=== PATIENT | female | born 1945 | race Hispanic/Latino ===

== ENCOUNTER 2024-06-18 09:39 | Emergency (ER) | payer MEDICARE, SELFPAY ==
--- NOTE | ~2024-06-18 | XR_ITS ---
XR chest 2V Ordering provider: Poppy Fried APRN History: 78 years Female with . cough fever x 2 days . Comparison: None. FINDINGS: MEDIASTINUM: The cardiac silhouette is not enlarged. LUNGS: No infiltrates, effusions or pneumothorax. OTHER: No free air under the diaphragm. Degenerative changes of the spine. Mild S-shaped scoliosis. IMPRESSION: No acute cardiopulmonary pathology. Reviewed, dictated and finalized at location A. HABILITATION SPECIALIST
[2024-06-18 09:53] VITALS: BP 127/61; PULSE 77; RESP 16; TEMP 36.9; O2SAT 99
--- NOTE | 2024-06-18 09:57 | ED.URI ---
HPI - URI/Sore Throat General Chief Complaint: Upper Respiratory Infection Stated Complaint: sore throat,chest issue Source: patient Mode of arrival: ambulatory Limitations: no limitations History of Present Illness HPI Narrative: 78 y/o female presented for c/o cough and chest congestion, body aches x3 days, and fever 100.4 yesterday.Endorses painful cough. Denies chest pain, sob, wheezing n/v/d. with similar symptoms. Related Data Allergies Allergy/AdvReac Type Severity Reaction Status Date / Time No Known Allergies Allergy Verified 06/18/24 09:57 Review of Systems Review of Systems: CONSTITUTIONAL: Reports body aches, fever EYES: Denies visual changes, redness, or discharge. ENT: Denies rhinorrhea, congestion, sore throat, or otalgia. CARDIOVASCULAR: Denies chest pain, palpitations, or edema. RESPIRATORY: Reports cough, denies sob, wheezing. GASTROINTESTINAL: Denies abdominal pain, nausea, vomiting, or diarrhea. SKIN: Denies rash NEUROLOGIC: Denies headache, numbness, tingling, or weakness. All systems reviewed & are unremarkable except as noted in HPI and below PMFSH Past Medical History Medical History (Updated 06/18/24 @ 10:29 by Poppy Fried, ELDA) Diabetes Glaucoma Comments At time of signature, I have reviewed and agree with nursing past medical, surgical, social and family history unless otherwise noted. Please see nursing chart for further information. There is no relevant family history pertinent to the presenting complaint Exam Narrative: GENERAL: Well-appearing, in no acute distress. EYES: EOMI. No redness or drainage. Conjunctivae normal. ENT: Mucous membranes pink and moist. No rhinorrhea. TMs normal bilaterally. Throat normal. Uvula midline. CHEST: No respiratory distress. Lungs clear to all osuna. HEART: Regular rate and rhythm. No murmur appreciated. ABDOMEN: Soft, nontender, nondistended SKIN: Warm, dry, no rash. Capillary refill normal. Normal skin turgor. NEURO: Alert and oriented x3. Gait steady. Course Course Emergency Course: Patient is aware of diagnosis, understands and agrees to treatment plan. Anticipatory guidance given. Patient agrees to follow-up as directed and is aware of reasons to seek care at the emergency department. Portions of this record may have been created with voice recognition software Level of Care: Express Care Visit Vital Signs Vital signs: Vital Signs Temperature 98.5 F 06/18/24 09:53 Pulse Rate 77 06/18/24 09:53 Respiratory Rate 16 06/18/24 09:53 Blood Pressure 127/61 06/18/24 09:53 Pulse Oximetry 99 06/18/24 09:53 Oxygen Delivery Room Air 06/18/24 09:53 Temperature 98.5 F 06/18/24 09:53 Pulse Rate 77 06/18/24 09:53 Respiratory Rate 16 06/18/24 09:53 Blood Pressure 127/61 06/18/24 09:53 Pulse Oximetry 99 06/18/24 09:53 Oxygen Delivery Room Air 06/18/24 09:53 MDM - URI/Sore Throat MDM Narrative Medical decision making narrative: Discussed physical exam findings, test results and CXR. Low dose short course prednisone, hx glaucoma. Advised supportive measures and signs/symptoms to go to the ER. Pt is appropriate for outpt treatment and f/u. Differential Diagnosis Differential diagnosis: Likely upper respiratory infection, sinusitis, viral infection, bronchitis, influenza and pharyngitis Imaging Data Radiologist's impression: Patient: Fara Knight : 1945 MR#: [id number] Age: 78 Acct:[id number] Loc: [facility] ADM Date: 06/18/24Attending Dr: Ordering Physician: Poppy Fried APRN Date of Service: 06/18/24 Procedure(s): XR chest 2V Accession Number(s): [id number] cc: Nate, Glenda Mendoza MD; Poppy Fried APRN~ XR chest 2V Ordering provider: Poppy Fried APRN History: 78 years Female with . cough fever x 2 days . Comparison: None. FINDINGS: MEDIASTINUM: The cardiac silhouette is not enlarged. LUNGS: No infiltrates, effusions or pneumothorax. OTHER: No free air under the diaphragm. Degenerative changes of the spine. Mild S-shaped scoliosis. IMPRESSION: No acute cardiopulmonary pathology Discharge Plan Discharge Clinical Impression: Bronchitis Patient Disposition: Home, Self-Care Condition: Stable Instructions: Antibiotic Form, Acute Bronchitis (ED) Additional Instructions: Acute bronchitis can be contagious because it is usually caused by infection with a virus or bacteria. It is usually for a few days but you can be contagious for up to one week. Avoid crowds until you do not have a fever and symptoms are improved Take medication as directed Recommend Flonase spray and Zyrtec (or Claritin/Arabella) over the counter Cough syrup may cause drowsiness; avoid driving or take it at night time. Tylenol 1000mg every 8 hours as needed for pain Symptomatic treatment includes: rest, fluids, and increase humidity of the air at home. Follow up with your primary care provider as needed in 1 week Go to the ER for worsening symptoms or concerns Prescriptions: New prednisone 20 mg tablet 40 mg PO DAILY 4 Days Qty: 8 0RF Follow-up/Referrals: Nate,Glenda Mendoza MD [Primary Care Provider] -
[2024-06-18 10:50] LABS: EDCOVIDSCREEN Negative (Negative); EDINFLUASCREEN Negative (Negative); EDINFLUBSCREEN Negative (Negative)
== END 2024-06-18 10:30 | disposition home or self-care (01) ==
PROVIDERS: Emergency Provider Nurse Practitioner Family; PCP Family Medicine
DX: J40 Bronchitis, not specified as acute or chronic (principal); Z20.822 Contact with and (suspected) exposure to COVID-19; E11.39 Type 2 diabetes mellitus with other diabetic ophthalmic complication; H42 Glaucoma in diseases classified elsewhere
CPT/HCPCS: 71046; 87426; 87804; 99213; G0463

== ENCOUNTER 2025-05-09 13:41 | Emergency (ER) | payer MEDICARE, MEDICAID, SELFPAY ==
--- NOTE | ~2025-05-09 | CT_ITS ---
EXAMINATION: CT brain wo belkis, 05/09/2025 14:30 CDT HISTORY: headache, hypertension COMPARISON: No comparisons available. Technique: Axial images obtained of the brain without contrast. One or more of the following dose reduction techniques were used: automated exposure control, adjustment of the mA and/or kV according to patient size, use of iterative reconstruction technique. Findings: No acute infarct or parenchymal hemorrhage. No abnormal mass or mass effect. No midline shift. No extra-axial fluid collections. No hydrocephalus. Mastoid air cells unremarkable. Sinuses and orbits unremarkable. No acute fracture. No significant facial or scalp soft tissue swelling evident. No radiopaque foreign body is seen. Impression: 1.No acute intracranial abnormality. Reviewed, dictated and finalized at location P. Impression: 1.No acute intracranial abnormality.
--- OUTSIDE RECORDS SUMMARY | 2025-05-09 13:44 | XMS_ITS | Clinical Summary ---
Author Organization [facility] Address [facility] [place] [address] Care Team Providers Care Dining Room Tables Set Up Attendant Name Role Phone Tuan Greene Primary Care Provider + Social History Tobacco Use Types Packs/Day Years Used Date Smoking Tobacco: Never Assessed Comments Unknown Sex and Gender Information Value Date Recorded Sex Assigned at Female 10/31/2024 1:00 PM CDT Legal Sex Female 1:05 PM CDT Gender Identity Not on file Sexual Orientation Not on file Plan of Treatment Health Maintenance Due Date Last Done Comments Hepatitis C 1965 DTaP, Tdap and Td Vaccines ( 1 - Tdap) 1966 Pneumococcal Vaccine: 50+ Years (1 of 1 - PCV) 1997 Zoster Vaccines (1 of 2) 1997 Annual Medicare Wellness Visit 2012 Dexa Scan (General) 2012 RSV Immunization or 60+ Years (1 - 1-dose 75+ series) 2022 COVID-19 Vaccine ( - 2023-2 5 season) 2025 Influenza Adult (#1) 2025 06/03/2024, 08/15/2022 Hepatitis A Vaccines Aged Out No long er eligible based on patient's age to complete this topic Meningococcal B Vaccine Aged Out No l onger eligible based on patient's age to complete this topic Meningococcal Vaccine Aged Out No chuckie antonio eligible based on patient's age to complete this topic RSV Immunizations Under 20 Months Aged Out No longer eligible b ased on patient's age to complete this topic Insurance [facility] MEDICARE MEDICAID Care Teams Dining Room Tables Set Up Attendant Relationship Specialty Start Date End Date Tuan Greene PA [facility] [place] [id number] PCP - General PHYSICIAN APPRENTICE EMBALMER 11/20/24
[2025-05-09 13:58] VITALS: BP 156/82; PULSE 67; RESP 20; TEMP 36.7; O2SAT 100
--- NOTE | 2025-05-09 14:38 | ED_ITS ---
HPI - Recheck/Abnormal Lab/Rx General Chief Complaint: Recheck/Abnormal Lab/Rx Stated Complaint: high BP Time Seen by Provider: 05/09/25 14:24 Source: patient Mode of arrival: ambulatory Limitations: no limitations History of Present Illness HPI narrative: This is a 79 year old female that presents to the ER for elevated blood pressure readings. Reports her provider recently increased her Vraylar and added on Quetiapine. Since then she has had elevated blood pressure. Reports some associated headaches. Denies vision changes, vomiting, numbness, weakness Related Data Allergies Allergy/AdvReac Type Severity Reaction Status Date / Time No Known Allergies Allergy Verified 06/18/24 09:57 Review of Systems 2 Review of Systems: All systems reviewed & are unremarkable except as noted in HPI and below PMFSH Past Medical History Medical History (Updated 05/09/25 @ 15:34 by Carol Park PA-C) Bipolar depression Glaucoma Diabetes Exam 2 Narrative: GENERAL: Well-appearing, well-nourished, and in no acute distress. HEAD: Normocephalic, atraumatic. EYES: PERRLA and EOMI. ENT: Nares clear, no rhinorrhea or epistaxis. Mucous membranes moist. Oropharynx without tonsillar hypertrophy exudate or other lesions. Bilateral TMs pearly hu non-bulging NECK: Supple. No adenopathy or masses. CHEST: Clear to auscultation. No respiratory distress. No wheezes rales or rhonchi HEART: Regular rate and rhythm. No murmur heard. Normal peripheral pulses. EXTREMITIES: Normal range of motion. No edema. SKIN: Warm, dry, no rash. NEURO: No focal deficits. Alert and oriented x3. Cranial nerves 2-12 grossly intact PSYCH: Normal mood and affect Course Course Emergency Course: patient and family updated on workup and agree with plan of care Vital Signs Vital signs: Vital Signs Temperature 98.0 F 05/09/25 13:58 Pulse Rate 67 05/09/25 13:58 Respiratory Rate 20 05/09/25 13:58 Blood Pressure 156/82 H 05/09/25 13:58 Pulse Oximetry 100 05/09/25 13:58 Oxygen Delivery Room Air 05/09/25 13:58 Temperature 98.0 F 05/09/25 13:58 Pulse Rate 67 05/09/25 13:58 Respiratory Rate 20 05/09/25 13:58 Blood Pressure 156/82 H 05/09/25 13:58 Pulse Oximetry 100 05/09/25 13:58 Oxygen Delivery Room Air 05/09/25 13:58 MDM - Recheck/Abnormal Lab/Rx MDM Narrative Medical decision making narrative: Patient presents the emergency department for elevated blood pressure readings, correlating this with recent increase in her Vraylar. Reporting headache. Blood pressure in the 150s to 180s in the ER. Laboratory studies without concerning findings. CT brain is without acute findings. Patient family updated on workup. Will trial decreasing her Vraylar back down to previous dose. She reports she has follow-up on Sunday Differential Diagnosis Differential diagnosis: Likely other (Hypertension, medication side effect) Lab Data Attestation: I reviewed the patient's lab results. 05/09/25 14:52 05/09/25 14:52 Labs: Lab Results 05/09/25 Range/Units 14:52 WBC 4.4 L (4.5-10.0) K/mm3 RBC 3.78 L (4.2-5.4) M/mm3 Hgb 12.3 (12.0-15.0) g/dL Hct 37.6 (37.0-47.0) % MCV 99.5 (80-100) fl MCH 32.5 (26-34) pg MCHC 32.7 (32-36) g/dl RDW 13.3 (11.5-14.5) % Plt Count 218 (150-375) k/mm3 MPV 9.2 (7.4-10.4) fl Immature Gran % (Auto) 0.2 (0-0.5) % Neut % (Auto) 58.3 (45.5-73.1) % Lymph % (Auto) 29.3 (18.3-44.2) % Wright % (Auto) 9.9 H (2.6-8.5) % Eos % (Auto) 1.8 (0-4.4) % Baso % (Auto) 0.5 (0.2-1.2) % Lymph # (Auto) 1.30 (0.9-3.2) K/mm3 Wright # (Auto) 0.4 (0.1-0.6) K/mm3 Eos # (Auto) 0.1 (0-0.3) K/mm3 Baso # (Auto) 0.0 (0.0-0.1) K/mm3 Abs Immat Gran (auto) 0.01 (0.00-0.031) K/mm3 Absolute Neuts (auto) 2.6 (1.3-6.7) K/mm3 Absolute Nucleated RBC 0.000 (0.0-0.012) K/mm3 Nucleated RBC % 0.0 (0.0-0.2) % Sodium 140 (137-145) mmol/L Potassium 4.0 (3.4-5.0) mmol/L Chloride 105 (98-107) mmol/L Carbon Dioxide 30 (22-30) mmol/L Anion Gap 5 (4-12) mmol/L BUN 16 (7-17) mg/dL Creatinine 0.55 L (0.7-1.0) mg/dL Estim Creat Clear Calc Not Reportable Estimated GFR > 60 (59 - ) Glucose 97 (65-110) mg/dL Calcium 9.1 (8.4-10.2) mg/dL Total Bilirubin 0.2 (0.2-1.3) mg/dL AST 34 (14-36) U/L ALT 24 (6-35) U/L Alkaline Phosphatase 107 (38-126) U/L Total Protein 7.1 (6.3-8.2) g/dL Albumin 4.2 (3.5-5.1) g/dL Imaging Data Radiologist's impression: ITS Impressions Head CT 05/09/25 14:52 Impression: 1.No acute intracranial abnormality. Critical Care Time Critical Care Time Critical Care Time: No Discharge Plan Discharge Clinical Impression: Elevated blood pressure reading Patient Disposition: Home Condition: Stable Instructions: Hypertension (ED) Additional Instructions: Return to the emergency department if you experience fever, chest pain, shortness of breath, weakness, numbness, or any other symptoms that are concerning to you. Let's see if decreasing your Vraylar back down (to 3mg) fixes your blood pressure issues Monitor your blood pressure at home daily. Record these readings to take to your PCP Follow up with your primary care doctor Patient Language: Mongolian Prescriptions: New Vraylar 3 mg capsule 3 mg PO DAILY Qty: 7 0RF No Action prednisone 20 mg tablet 40 mg PO DAILY 4 Days Qty: 8 0RF Follow-up/Referrals: El-Wilfred,Glenda Mendoza MD [Non-Staff]
--- OUTSIDE RECORDS SUMMARY | 2025-05-09 14:52 | XMS_ITS | Clinical Summary ---
Author Organization [facility] Address [facility] [place] [address] Care Team Providers Care Automobile Assembly Supervisor Name Role Phone Tuan Greene Primary Care [...] patient's age to complete this topic Insurance [facility] MEDICARE MEDICAID Care Teams Automobile Assembly Supervisor Relationship Specialty Start Date End Date Tuan Greene PA [facility] [place] [id number] PCP - General PHYSICIAN JAVA ENGINEER 11/20/24
--- OUTSIDE RECORDS SUMMARY | 2025-05-09 14:52 | XMS_ITS | Data Portability ---
Author Organization [place] [facility], Main Office Address [address] [place] [address] Care Team Providers Care Nuts And Bolts Assembler Name Role Phone SPENCER GREENE Primary Care Provider SPENCER GREENE Referring Provider [phone] Assessment No assessment recorded. Plan of Treatment Reminders Order Date Submit Date Provider Last Modified By Organization Details Last Modified Time Details Appointments Medicare Wellness 30 2024 09:00A ALEJANDRINA Max Not available Not available Not available Lab HbA1c (hemoglob in A1c), blood 2024 025 [facility], [address], [place], [address], 03/03/2025 09:29:53 CBC w/ auto diff 2024 025 [facility], [address], [place], [address], 03/03/2025 09:29:54 urinalysi s, complete 2024 025 GILDA [facility], [address], [place], [address], 02/25/2025 14:05:22 TSH + free T4, serum 2024 025 [facility], [address], [place], [address], 03/03/2025 09:29:53 lipid panel, serum 2024 025 [facility], [address], [place], [address], 03/03/2025 09:29:53 CMP, serum or plasma 2024 025 [facility], [address], [place], [address], 03/03/2025 09:29:53 hemoglobi n A1C, fingersti ck 2024 025 [facility], [address] [facility], [place], [address], 10/20/2024 11:04:20 colorecta l cancer gene mutations , blood/tis stephanie (OBS) [address] [facility], [address], [place], [address], 07/02/2024 11:04:46 glycohemo globin, total, blood 2023 024 [facility] [address] [place], [address], 06/03/2024 19:02:05 Referral physical therapist referral - Please call patient to schedule. 2024 025 [email or web address] [facility], [address] [place] [address], [place], [address], 03/30/2025 17:40:49 Procedures None recorded. Surgeries None recorded. Imaging MRI, brain, w/o contrast - Please call patient to schedule. Note from provider: poor short term memory , worried about dementia 2024 025 [email or web address] [facility] (Central Scheduling), [address] [place], [address], 11/18/2024 16:55:29 MAMMO, screening , digital, bilateral - Please call pt to schedule 2023 024 [email or web address] [id number] [facility], [address], [place], [address], 08/01/2024 08:58:26 DEXA, axial skeleton - Please call pt to schedule 2023 024 [email or web address] 56 [facility], [address], [place], [address], 08/01/2024 08:58:06 Medication Orders Vraylar 1.5 mg capsule 2024 025 [facility] #17579, [address], [place], [id number], 02/24/2025 10:33:27 trazodone 50 mg tablet 2024 025 [facility], [address], [place], [id number], 02/24/2025 11:28:45 meloxicam 15 mg tablet 2024 025 [facility], [address], [place], [id number], 02/24/2025 10:33:26 trazodone 100 mg tablet 2024 025 [facility], [address], [place], [id number], 11/24/2024 09:57:20 hydroxyzi ne HCl 25 mg tablet 2024 025 [facility] #12694, [address], [place], [id number], 02/24/2025 11:27:59 OneTouch Ultra Test strips 2024 025 [facility] #93673, [address] [place], [place], [id number], 11/24/2024 10:09:19 azithromy jesenia 250 mg tablet [address] [facility] #96060, [address] [place], [place], [id number], 02/24/2025 10:08:00 promethaz ine-DM 6.25 mg-15 mg/5 mL oral syrup 2024 025 [facility] #36076, [address], [place], [id number], 02/24/2025 10:32:14 prednison e 20 mg tablet [address] [facility] #58948, [address] [place], [place], [id number], 02/24/2025 10:09:14 Linzess 145 mcg capsule [address] [facility] #20416, [address] [place] [address], [id number], 02/24/2025 10:09:02 atorvasta tin 40 mg tablet 2023 024 [facility] #48610, [address] [place], [place], [id number], 06/03/2024 12:22:56 meloxicam 15 mg tablet 2023 024 [facility] #62697, [address], [place], [id number], 06/03/2024 12:22:13 OneTouch Ultra Test strips 2023 024 [facility], [address] [place], [place], [id number], 06/03/2024 12:22:12 Patient TargetsNo targets recorded. Patient Instructions Encounter Date Encounter Id Patient Instructions Last Modified By Organization Details Last Modified Time 06/03/2024 [id number] dementia rating scale-2* [email or web address] Not available 06/03/2024 13:49:00 alcohol misuse* [email or web address] Not availab le 06/24/2024 14:57:21 depression screening* [email or web address] Not available 06/24/2024 14:57:21 multi-dimensiona l health assessment questionnaire* [email or web address] Not available 06/03/2024 13:48:55 Personalized Hea lth Plan and Screening Recommendations Advance Directives - Do you have one? No I have no recommendations Advance Directives - Do we have your advance directive on file in your health record? No, please bring in a copy at your earliest convenience Primary Prevention/Interven tion (prevents or decreases the chance of common diseases from occurring) Smoking Risk: Non Smoker I have no recommendations Alcohol Misuse Screening: Positive Decrease alcohol intake to 1 or less servings per day Weight: Appropriate continue your current weight loss efforts Physical activity: Need more exercise/physical activity minimum of 20-30 minutes activity that causes mild breathlessness/day Nutrition: Average EAt Heart Healthy Diet Fall Risk (screened today): Intermediate Refer to attached handout Preventing Falls: After your Visit Vaccines Pneumococcal: No further needed Influenza: Recommended today Chronic Disease Risks Stroke: Intermediate Risk Active diagnosis, Continue current treatment plan Heart Attack: Intermediate Risk Active diagnosis, Continue current treatment plan Clogging of the Arteries: Intermediate Risk Active diagnosis, Continue current treatment plan Diabetes: High Risk Active diagnosis, Continue current treatment plan Secondary Prevention/Interven tion (detects treatable diseases before they may cause symptoms, disability, or ) Breast Cancer Screening with mammogram: Recommended today Cervical/Uterine/Ov zoe Cancer Screening: No screening necessary Osteoporosis Screening: Recommended today Colon Cancer Screening: Linder Test Recommended Eye Disease Screening: No Eye exam necessary Dementia Risk: Low I have no recommendations Depression Screening: Positive Active diagnosis, Continue current treatment plan [email or web address] Not available 06/02/2024 15:07:53 09/23/2024 [id number] samples of Linze ss 145 mcg # 20. she refused donepezil today. ordered a venous doppler [email or web address] Not available 09/23/2024 10:37:55 11/24/2024 [id number] just test daily fasting , check once weekly 2 hours after a meal . try you tube Deena's Roy Not available 11/26/2024 11:02:20 Reason for Referral Physical Therapist Referral for Pain of right knee joint Please call patient to schedule. Referring Physician: Ashlie Minor, Family Medicine, Encounter Date: 02/24/2025 Results Created Date Observation Date Name Description Value Unit Range Abnormal Flag Note LastModifiedBy Organization Detail LastModifiedTime 10/21/19 25 10/20/2024 hemog lobin A1C, finge rstic k HgbA1C 5.1 Not Available [facility] [address] [place], [address], 10/20/2024 10:34:35 06/18/20 24 06/18/2024 XR, chest , 2 view No observ ation record ed. [email or web address], [place], [address], 06/18/2024 14:13:08 12/05/19 25 12/04/2024 US, doppl er, venou s No observ ation record ed. [facility] [address] [place], [address], 03/05/2025 17:10:44 12/10/19 25 12/04/2024 MRI, brain , w/o contr ast No observ ation record ed. [address] [address] [place], [address], 03/05/2025 17:10:45 Result Notes None recorded. Problems Name Problem SNOMED Code Status Onset Date Resolution Date Notes Provider Name and Address Organization Details Recorded Time Hallux valgus AND bunion 640437481 Active Not Available [facility] 3 06:27:47 Insomnia 535546537 Active Not Available [facility] 3 06:27:47 Costal chondritis 71522102 Active Not Available [facility] 3 06:27:48 Fatigue 30634215 Active Not Available [facility] 3 06:27:48 Type 2 diabetes mellitus without complicati on 166256629 Active 2022 Not Available [facility] 3 06:27:47 Hypothyroi dism 53376281 Active 2022 Not Available [facility] 3 06:27:48 Hyperlipid emia 22619561 Active 2022 Not Available [facility] 3 06:27:48 Acute bronchitis with bronchospa sm 46781317 Active 2022 Not Available [facility] 3 06:27:48 Pain of toe of right foot 7116202437004 01 Active 2022 Not Available [facility] 3 06:27:48 Acute laryngitis 7621739 Active 2022 Not Available [facility] 3 06:27:48 Low back pain 165608116 Active 2022 Not Available [facility] 3 06:27:47 Osteopenia 914073836 Active 2022 Not Available [facility] 3 06:27:47 Mammograph y abnormal 228574485 Active 2022 Not Available [facility] 3 06:27:47 Mammograph ic mass of right breast 6031274711247 9103 Active 2022 Not Available [facility] 3 06:27:47 Pain of knee region 7329779248 Active 2023 DANIEL Dent [address] [address], [place], [address] , [facility] [employer] [facility] 4 09:39:19 Bipolar disorder 38654464 Active 2023 DANIEL Dent [address], [place], [address] , [place] [facility] 4 09:48:03 Tear of lateral meniscus of knee 644061340 Active 2023 DANIEL Dent [address], [place], [address] , [place] [facility] 4 14:29:46 Pain of right knee joint 2772335538162 00 Active 2023 NATHAN Rivas null, [place] [facility] 4 09:38:58 Screening for malignant neoplasm of colon Active 2023 DANIEL Dent [address], [place], [address] , [place] [facility] 4 12:16:17 Screening mammograph y Active 2023 DANIEL Dent [address], [place], [address] , [place] [facility] 4 12:25:14 Screening for osteoporos is Active 2023 DANIEL Dent [address], [place], [address] , [place] [facility] 4 12:25:54 Peripheral vascular disease 904730553 Active 2024 Bindu Elmore RN null, [place] [facility] 5 10:04:14 Edema of lower extremity 190991087 Active 2024 Bindu Elmore RN null, [place] [facility] 5 10:04:40 Chronic idiopathic constipati on 74555773 Active 2024 DANIEL Dent [address], [place], [address] , [place] [facility] 5 10:34:19 Poor short-term memory 386532546 Active 2024 DANIEL Dent [address], [place], [address] , [place] [facility] 5 10:35:16 Pain of left calf 3002561020244 109 Active 2024 DANIEL Dent [address], [place], [address] , [place] [facility] 10:37:20 Acute bronchitis 03431402 Active 2024 DANIEL Dent [address], [place], [address] , [place] [facility] 10:23:41 Hallux valgus of right foot Active 2024 DANIEL Dent [address], [place], [address] , [place] [facility] 10:29:52 Generalize d anxiety disorder 55741704 Active 2024 DANIEL Dent [address], [place], [address] , [facility] 09:54:55 Latent autoimmune diabetes mellitus in adult 475133827 Active 2024 DANIEL Dent [address], [place], [address] , [facility] 11:04:04 Postmenopa usal osteopenia 090282281 Active 2024 ALEJANDRINA Retana [address], [place], [address] , [place] [facility] 5 10:52:49 Well controlled type 2 diabetes mellitus 955338432 Active 2024 ALEJANDRINA Retana [address], [place], [address] , [place] [facility] 5 10:26:31 Primary insomnia 6503349 Active 2024 ALEJANDRINA Retana [address], [place], [address] , [facility] [email or web address] 5 11:26:56 Notes:Some problems listed i n Documents: #[id number], #[id number] could not be added to this patient's chart. Please review these documents and add these problems to the patient's chart manually as needed. Problem Notes None recorded. Procedures Surgical History Date Name Laterality Status Provider Name and Address Organization Details Recorded Time 4 Medicare Wellness CPT Code, subsequent completed Kristel Iniguez RN [place] [employer] [facility] 06/02/2024 14:55:36 3 Medicare Wellness CPT Code, Initial completed Jacqueline Carmona RN [employer] 03/19/2023 11:50:04 Hernia Surgery completed Not Available [facility] 09/20/2022 18:01:08 Imaging Results None recorded. Procedure Notes None recorded. Medical Equipment None Reported. Allergies No known drug allergies Medications Name Sig Start Date Stop Date Status Note LastModified by Organization Details LastModified Time latanoprost 0.005 % eye drops INSTILL 1 DROP INTO LEFT EYE AT NIGHT TIME active Not Available Not Available No t Available atorvastati n 40 mg tablet TAKE 1 TABLET BY MOUTH EVERY DAY active Not Available Not Available No t Available promethazin e-DM 6.25 mg-15 mg/5 mL oral syrup TAKE 5 ML BY MOUTH EVERY 4 HOURS FOR 10 DAYS NEEDED 02/24 completed Not Available Not Available Not Available naproxen 375 mg tablet TAKE 1 TABLET BY MOUTH TWICE DAILY 10/20 completed Not Available Not Available Not Available trazodone 50 mg tablet TAKE 1/2 TABLET NEEDED FOR MIDDLE OF THE NIGHT WAKES active Not Available Not Available No t Available Stool Softener 100 mg capsule 10/23 completed Not Available Not Available Not Available azithromyci n 250 mg tablet TAKE 2 TABLETS (500 MG) BY ORAL ROUTE ONCE DAILY FOR 1 DAY THEN 1 TABLET (250 MG) BY ORAL ROUTE ONCE DAILY FOR 4 DAYS 02/24 completed Not Available Not Available Not Available ofloxacin 0.3 % eye drops INSTILL 1 DROP TO SURGICAL EYE FOUR TIMES DAILY BEGINNING AFTER SURGERY 10/25 completed Not Available Not Available Not Available meloxicam 15 mg tablet TAKE 1 TABLET BY MOUTH EVERY DAY 2024 active Not Available Not Available Not Avai lable prednisone 20 mg tablet Take 2 tabs PO twice daily for 2 days; 1 tab PO twice daily for 5 days; 1/2 tab PO twice daily for 2 days; 1/2 tab PO once for 1 day. TAKE 2ND DOSE EVERYDAY AT NOON-10 DAY COURSE 02/24 completed Not Available Not Available Not Available sertraline 100 mg tablet TAKE 1 TABLET BY MOUTH EVERY DAY IN THE MORNING 10/20 completed Not Available Not Available Not Available Tamiflu 75 mg capsule active Not Available Not Available N ot Available oxycodone-a cetaminophe n 5 mg-325 mg tablet completed Not Available Not Available Not Available prednisolon e acetate 1 % eye drops,suspe nsion SHAKE LIQUID AND INSTILL 1 DROP IN LEFT EYE EVERY DAY active Not Available Not Available No t Available lorazepam 0.5 mg tablet TAKE 1 TABLET BY MOUTH EVERY DAY FOR 14 DAYS NEEDED completed Not Available Not Available Not Available trazodone 100 mg tablet TAKE 1 TABLET BY MOUTH EVERY DAY AT BEDTIME active Not Available Not Available No t Available Kamida Ultra Test strips USE DIRECTED TO TEST BLOOD SUGAR THREE TIMES DAILY active Not Available Not Available No t Available meclizine 25 mg tablet Take 1 tablet 3 times a day by oral route. completed Not Available Not Available Not Available erythromyci n 5 mg/gram (0.5 %) eye ointment APPLY 1/4 INCH IN AFFECTED LEFT EYE THREE TIMES DAILY FOR SEVERAL DAYS 10/25 completed Not Available Not Available Not Available brimonidine 0.2 % eye drops INSTILL 1 DROP IN BOTH EYES TWICE DAILY completed Not Available Not Available Not Available sertraline 25 mg tablet TAKE 1 TABLET BY MOUTH EVERY DAY IN THE MORNING FOR 7 DAYS 06/03 completed Not Available Not Available Not Available omeprazole 20 mg capsule,del ayed release TAKE 1 CAPSULE BY MOUTH EVERY DAY active Not Available Not Available No t Available hydroxyzine HCl 25 mg tablet TAKE 1 TABLET BY MOUTH ONLY IN THE MIDDLE OF THE NIGHT NEEDED IF SHE WAKES UP AT 1 AM 2024 active Not Available Not Available Not Avai lable lisinopril 5 mg tablet TAKE 1 TABLET BY MOUTH EVERY DAY completed Not Available Not Available Not Available methylpredn isolone 4 mg tablets in a dose pack FOLLOW PACKAGE DIRECTION S completed Not Available Not Available Not Available timolol maleate 0.5 % eye drops INSTILL 1 DROP IN LEFT EYE TWICE DAILY active Not Available Not Available No t Available fluticasone propionate 50 mcg/actuati on nasal spray,suspe nsion 2 sprays each NS daily 10/23 completed Not Available Not Available Not Available metformin ER 500 mg tablet,exte nded release 24 hr TAKE 1 TABLET BY MOUTH EVERY DAY active Not Available Not Available No t Available sertraline 50 mg tablet TAKE 1 TABLET BY MOUTH EVERY DAY 06/03 completed Not Available Not Available Not Available dorzolamide 2 % eye drops INSTILL 1 DROP INTO LEFT EYE TWICE DAILY active Not Available Not Available No t Available Oyster Shell Calcium-Vit saldaña D3 500 mg-5 mcg (200 unit) tablet TAKE 1 TABLET (500 MG) BY MOUTH 2 TIMES DAILY 10/23 completed Not Available Not Available Not Available escitalopra m 5 mg tablet TAKE 1 TABLET BY MOUTH EVERY DAY completed Not Available Not Available Not Available OneTouch UltraSoft Lancets USE DIRECTED 10/23 completed Not Available Not Available Not Available aripiprazol e 2 mg tablet TAKE 1 TABLET BY MOUTH EVERY DAY 10/23 completed Not Available Not Available Not Available calcium 600 mg (as carbonate)- vitamin D3 10 mcg (400 unit) tablet TAKE 2 TABLET BY MOUTH EVERY DAY active Not Available Not Available No t Available brimonidine 0.2 %-timolol 0.5 % eye drops INSTILL 1 DROP IN AFFECTED EYE(S) TWICE DAILY completed Not Available Not Available Not Available Lumigan 0.01 % eye drops Apply 1 drop by ophthalmi c route at bedtime. completed Not Available Not Available Not Available Linzess 145 mcg capsule TAKE 1 CAPSULE BY MOUTH EVERY DAY 02/24 completed Not Available Not Available Not Available Vraylar 1.5 mg capsule TAKE 1 CAPSULE BY MOUTH EVERY DAY DIRECTED active Not Available Not Available No t Available OneTouch Ultra2 Meter USE DIRECTED TO CHECK BLOOD SUGAR active Not Available Not Available No t Available OneTouch Delica Plus Lancet 33 gauge USE DIRECTED 10/23 completed Not Available Not Available Not Available Vitals Date Recorded Body height Body mass index (BMI) Body weight Body temperature Heart rate Respiratory rate Oxygen saturation Oxygen saturation in Arterial blood by Pulse oximetry Systolic And Diastolic Provider Name and Address Organization Details Last Updated DateTime 5 152.4 cm 22.3 kg/m2 56990.5 3 g 97.3 [degF] 62 /min 16 /min 98 % 98 % 118/78 mm[Hg] Bindu Elmore RN [facility] [employer] [facility] 5 10:23:01 Date Recorded Body height Body mass index (BMI) Body weight Body temperature Oxygen saturation Oxygen saturation in Arterial blood by Pulse oximetry Heart rate Systolic And Diastolic Provider Name and Address Organization Details Last Updated DateTime 5 152.4 cm 22.7 kg/m2 27459.7 1 g 97.1 [degF] 94 % 94 % 62 /min 140/68 mm[Hg] Deena Summers Lebron [facility] [employer] [facility] 5 10:07:59 Date Recorded Body height Body mass index (BMI) Body weight Body temperature Heart rate Oxygen saturation Oxygen saturation in Arterial blood by Pulse oximetry Systolic And Diastolic Provider Name and Address Organization Details Last Updated DateTime 5 152.4 cm 22.7 kg/m2 35843.7 1 g 96.9 [degF] 76 /min 97 % 97 % 124/72 mm[Hg] Deena Summers Lebron [facility] [employer] [facility] 5 09:40:44 Date Recorded Body height Body mass index (BMI) Body weight Body temperature Heart rate Respiratory rate Oxygen saturation Oxygen saturation in Arterial blood by Pulse oximetry Pain severity - 0-10 verbal numeric rating [Score] - Reported Systolic And Diastolic Provider Name and Address Organization Details Last Updated DateTime 5 152.4 cm 22.5 kg/m2 43563.5 2 g 97 [degF] 63 /min 20 /min 93 % 93 % 0 154/92 mm[Hg] Hailey Cbarera RN [facility] [employer] [facility] 5 10:12:00 Date Recorded Body height Body mass index (BMI) Body weight Body temperature Heart rate Oxygen saturation Oxygen saturation in Arterial blood by Pulse oximetry Systolic And Diastolic Provider Name and Address Organization Details Last Updated DateTime 4 152.4 cm 21.3 kg/m2 99626.5 7 g 97.6 [degF] 55 /min 100 % 100 % 104/80 mm[Hg] LUPE Ar[facility]o - [facility] 4 11:46:48 Social History Question Answer Notes LastModified by Organizat ion Details LastModified Time Tobacco Smoking Status Never Smoker Not Available [employer] 09/20/2022 18:01:05 Do You Have An Advance Directive? No Information not available 02/24/2025 Are You Blind Or Do You Have Difficulty Seeing? No Information not available 02/24/2025 What Is Your Level Of Caffeine Consumption? Moderate 2-3 Cups A Day [id number] Information not available 09/20/2022 In The 14 Days Before Symptom Onset, Have You Had Close Contact With A Laboratory-confi rmed COVID-19 While That Case Was Ill? No Information not available 02/24/2025 In The 14 Days Before Symptom Onset, Have You Had Close Contact With A Person Who Is Under Investigation For COVID-19 While That Person Was Ill? No Information not available 02/24/2025 Are You Deaf Or Do You Have Serious Difficulty Hearing? No Information not available 02/24/2025 What Type Of Diet Are You Following? REGULAR [id number] Information not available 09/20/2022 Have There Been Any Changes To Your Family Or Social Situation? No Information not available 02/24/2025 Do You Use Insect Repellent Routinely? No Information not available 02/24/2025 Where Do You Live? Other Senior Apartments Information not available 02/24/2025 Advance Directive- Providers Has Reviewed Directive And Consents To Follow Them (insert Provider Name With Any Objectives In Notes Field) No Information not available 02/24/2025 Presence Of Domestic Violence No Hesitated Information not available 02/24/2025 Guns Present In The Home? No Information not available 02/24/2025 Are You Able To Care For Yourself? Yes Information not available 02/24/2025 Are You Blind Or Do Yo Have Difficulty Seeing? No Information not available 02/24/2025 Are You Deaf Or Do You Have Serious Difficulty Hearing? No Information not available 02/24/2025 General Stress Level? Low Information not available 02/24/2025 Live Alone Of With Others? With Others Information not available 02/24/2025 Do You Have A Medical Power Of Investigation Lieutenant? No Information not available 02/24/2025 What Was The Date Of Your Most Recent Tobacco Screening? 10/24/2023 [email or web address] Information not available 10/24/2023 Do You Have Any Pets? Yes Information not available 02/24/2025 What Is Your Relationship Status? Information not available 02/24/2025 Do You Use Your Seat Belt Or Car Seat Routinely? Yes Information not available 02/24/2025 Do You Have Smoke And Carbon Monoxide Detectors In Your Home? Yes Information not available 02/24/2025 Are You Passively Exposed To Smoke? No Information not available 02/24/2025 Are There Any Smokers In Your House? No Information not available 02/24/2025 Do You Participate In Social Media? No Information not available 02/24/2025 Do You Use Sunscreen Routinely? No Information not available 02/24/2025 Do You Have Difficulty Walking Or Climbing Stairs? No Information not available 02/24/2025 Sex: Unknown Functional Status Question Answer Note LastModified by Organizat ion Details LastModified Time Do you use any illicit or recreational drugs? No [id number] Information not available 09/20/2022 What is your level of alcohol consumption? Occasional [id number] Information not available 09/20/2022 Are you currently employed? No Information not available 02/24/2025 Do you have transportation difficulties? No Information not available 02/24/2025 Are you able to walk independently without assistance or assistive devices? YESWOREST Information not available 02/24/2025 Do you have difficulty doing errands alone? No Information not available 02/24/2025 Are you able to care for yourself independently? Yes Information not available 02/24/2025 Do you have difficulty dressing, bathing, grooming, or toileting? No Information not available 02/24/2025 Mental Status Question Answer Note LastModified by Organizat ion Details LastModified Time Do you feel stressed (tense, restless, nervous, or anxious, or unable to sleep at night)? [id number] Information not available 02/24/2025 Do you have difficulty concentrating, remembering or making decisions? Yes Information no t available 02/24/2025 Family History Relationship Description Onset Age of this Age Resolved Age Notes LastModified by Organization Details LastModified Time Mother Osteoporosis Not availa ble 02/24/2025 10:12:41 Father Kidney disease Not available 2024 10:13:08 Medical History Condition Response ANXIETY DISORDER Y INSOMNIA Y HEARTBURN / REFLUX Y HIGH CHOLESTEROL / HYPERLIPIDEMIA Y Gynecological History Statement/Question Response Date of Last Pap Smear Date of Last Colonoscopy Most Recent Mammogram Most Recent Bone Density Obstetrics History GPAL:G 0 P 0 0 0 0 Immunizations Vaccine Type Date Status Note Provider Nam e and Address Organization Details Recorded Time Influenza, MDCK, quadrivalent, PF 08/15/2022 completed ALEJANDRINA Retana [address], [email or web address], [place], [address], [employer] 02/24/2025 10:29:06 Influenza, high-dose, trivalent, PF 06/03/2024 completed DANIEL Dent [address], [place], [address], [employer] 06/24/2024 15:07:20 Past Encounters Encounter ID Performer Location Encounter Start Date Encounter Closed Date Diagnosis/Indication Diagnosis SNOMED-CT Code Diagnosis ICD10 Code Diagnosis IMO Codes Diagnosis Note [id number] Glenda Sullivan MD [facility] [place] [address] [address] [facility] [place] [address] 11/22/2021 00:00:00 11/22/2021 21:04:53 [id number] Glenda Sullivan MD [facility] [place] mandujano [address] [place] [address] [place] [address] 03/02/2022 00:00:00 03/02/2022 11:34:55 [id number] Glenda Sullivan MD [facility] Ross mandujano [address] [place] [address] [place] [address] 04/24/2022 00:00:00 04/24/2022 09:25:28 [id number] Glenda Sullivan MD [facility] [place] mandujano [address] [place] [address] [place] [address] 09/25/2022 09:49:00 09/25/2022 10:16:32 Type 2 diabetes mellitus without complication 767300590 E11.9 A1C is 6.2% Hypothyroidism 20661469 E03.9 Insomnia 809252472 G47.0 0 Will increase trazodone to 100 mg QHS. Hyperlipidemia 33393605 E78.5 [id number] Glenda Sullivan MD [facility] [place] mandujano [address] [place] [address] [place] [address] 10/25/2022 12:10:19 10/25/2022 12:30:47 Acute bronchitis with bronchospasm 75049429 J20.9 Pain of to e of right foot 8611334575 32595 M79.674 Acute laryngitis 3066061 J04.0 Gargles with warm salt water and drink hot tea with honey. Use throat lozenges. [id number] Glenad Sullivan MD [facility] [place]ano [address] [place] [address] [place] [address] 03/20/2023 10:34:35 03/20/2023 11:01:45 Adult health examination 286601322 Z00.00 Screening for disorder 784933377 Z13.9 Hyperlipidemia 86580056 E78.5 Type 2 myrna betes mellitus without complication 640922201 E11.9 Insomnia 148225439 G47.0 0 Will increase trazodone to 100 mg QHS. Screening for malignant neoplasm of breast 605299202 Z12.39 Osteopenia 727608507 M85 .80 [id number] Glenda Sullivan MD [address] [place] [address] 09/20/2023 09:27:30 09/20/2023 09:55:31 Pain of knee region 8839021825 M25.569 Type 2 myrna betes mellitus without complication 569141865 E11.9 Low back pain 369037464 M54.50 Hyperlipidemia 71776396 E78.5 Insomnia 657222596 G47.0 0 Bipolar disorder 1128822 4 F31.9 [id number] Nash Hinton MD [facility] [address] [place] [address] 10/24/2023 09:23:13 10/24/2023 10:02:33 Pain of right knee joint 3357528144 91574 M25.054 [id number] Porfirio Walters MD [address] [place] [address] 06/03/2024 11:30:18 06/03/2024 12:33:53 Adult health examination 247975549 Z00.00 Screening for disorder 450138875 Z13.9 Administra tion of influenza vaccine 51278134 Z23 Screening for malignant neoplasm of colon 836184745 Z12.11 Pain of ri ght knee joint 3861248239 91559 M25.561 Type 2 myrna betes mellitus without complication 078884982 E11.9 Hyperlipidemia 61326045 E78.5 Screening mammography 24 855914 Z12.31 Screening for osteoporosis 481375159 Z13.607 [id number] Porfirio Walters MD [address] [place] [address] 09/23/2024 10:17:36 09/29/2024 09:57:34 Edema of lower extremity 773770074 R60.0 Screening for osteoporosis 774833628 Z13.820 Peripheral vascular disease 544597843 I73.9 Chronic id iopathic constipation 52295216 K59.04 Poor short -term memory 571968387 R41.3 Pain of left calf 407722 2852 521000 M79.662 Hyperlipidemia 06542494 E78.5 Hypothyroidism 60235325 E03.9 Low back pain 479980911 M54.50 Osteopenia 827684606 M85 .80 Type 2 myrna betes mellitus without complication 115652518 E11.9 [id number] Porfirio Walters MD [address] [address] 10/20/2024 09:57:34 10/20/2024 10:59:48 Acute bronchitis 94789965 J20.9 Hallux manpreet malaika of right foot 4307571839 M20.11 Type 2 myrna betes mellitus without complication 408993959 E11.9 Peripheral vascular disease 265816642 I73.9 Poor short -term memory 643537275 R41.3 Hyperlipidemia 99147791 E78.5 Hypothyroidism 11356313 E03.9 [id number] Porfirio Walters MD [address] [address] 11/24/2024 09:21:41 11/24/2024 10:19:05 Insomnia 655169700 G47.00 Type 2 myrna betes mellitus without complication 758019951 E11.9 Bipolar disorder 7608954 4 F31.9 Generalize d anxiety disorder 85198270 F41.1 210563 Hyperlipidemia 01630364 E78.5 Hypothyroidism 93767719 E03.9 Low back pain 114703479 M54.50 Osteopenia 973310788 M85 .80 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 Hinton, managing elysia day. She is interested in PT Well contr olled type 2 diabetes mellitus 511284437 E11.9 713856 Well controlled with metformin, last A1C 5.1 Bipolar disorder 6695050 4 F31.9 Daughter states Fara takes medication s short term then stops frequently . Will to try Vraylar Hyperlipidemia 43681858 E78.5 Will check labs as below Hypothyroidism 87451367 E03.9 Not medically managed, will check labs Primary insomnia 7800645 F51.01 69085 Will continue taking trazodone 100 mg at bedtime and 25 mg as needed for middle of the night wakes Health Concerns Section Related Observation LastModified by Organization Detai ls LastModified Time None Recorded Concern Status LastModified by Organization Details LastModified Time None Recorded Advance Directives Directive N: Payers Insurance Date Sequence Insurance Name Policy Number Policy Hunter Covered Member ID Hunter Member ID Guarantor Name 02/21/2025 2 [place] [facility] Fara Knight [id number] Fara Knight 02/24/2025 1 [facility] (MEDICARE REPLACEMENT/A DVANTAGE - PPO) [id number] Fara Knight [id number] Fara Knight Notes Date Note Type Note Provider Name and Address Organization Details Recorded Time 06/03/2024 text/html ROS as noted in the HPI right shoulder strain, DANIEL Dent [address], [place], [address], [employer] 06/24/2024 15:09:13 09/23/2024 text/html ROS as noted in the HPI calf cramp , left , on atorvastatin . wakes up at 3 am even with trazadone. constipation DANIEL Dent [address], [place], [address], [employer] 09/28/2024 16:52:45 10/20/2024 text/html ROS as noted in the HPI Dry cough for 2 weeks, no fever . just discharged from hospital with pneumonia .need diabetic shoes , need renewal of parking placard DANIEL Dent [address], [place], [address], [employer] 10/21/2024 10:09:20 11/24/2024 text/html ROS as noted in the HPI wakes up at 1 am , cannot go back to sleep . tests blood sugar 3 times daily . A1c was 5.1 on 10/20/24 DANIEL Dent [address], [place], [address], [employer] 11/26/2024 11:04:48 02/24/2025 text/html Fara Knight is a 79 year old female patient her today to establish care. She was previously under the care of Deon Greene. Hyperlipidemia. This is well controlled.They are currently taking atorvastatin 40mg. Denies muscle cramping.Advised to limit fatty/greasy foods and increase cardiovascular exercise Daughter expresses concerns with her mood. She has a diagnosis of bipolar disorder. She utilizes hydroxyzine PRN and trazodone for insomnia. She notes she takes trazodone at 9 pm and can fall asleep but she wakes up at 1 am and cannot go back to sleep without hydroxyzine but hydroxyzine makes her too drowsy. Type 2 diabetes mellitus. This is well controlled. Last A1C 5.1 on 10/20/24.They are currently taking metformin ER 500 mg.Patient denies confusion, excessive urination and thirst, neuropathy, foot wounds. She has concerns about RAHUL knee pain. She is taking meloxicam and finds this effective. She is interested in PT Flu shot: OVID vaccines: declinesPneumonia vaccines: believes she completedShingles vaccines: SV: recommendedMammogram: 2022, normal. Does not want to do anymore.PAP: does not want to do anymorecologuard 2023 does not want to do anymore ALEJANDRINA Retana [address], [place], [address], [employer] 02/24/2025 11:33:26 OBGyn Episode No OBEpisode recorded.
[2025-05-09 14:58] LABS: Hematocrit 37.6 % (37.0-47.0); Hemoglobin 12.3 g/dL (12.0-15.0); Immature Granulocyte Percent A 0.2 % (0-0.5); Lymphocytes Absolute Auto 1.30 K/mm3 (0.9-3.2); Mean Corpuscular HGB Conc 32.7 g/dl (32-36); Mean Corpuscular Hemoglobin 32.5 pg (26-34); Mean Corpuscular Volume 99.5 fl (80-100); Nucleated Red Blood Cells Absolute Auto 0.000 K/mm3 (0.0-0.012); Nucleated Red Blood Cells Perc 0.0 % (0.0-0.2); Platelet Count Result 218 k/mm3 (150-375); Red Blood Count 3.78 M/mm3 (4.2-5.4); White Blood Count 4.4 K/mm3 (4.5-10.0)
[2025-05-09 15:11] LABS: Alanine Aminotransferase 24 U/L (6-35); Albumin Level 4.2 g/dL (3.5-5.1); Alkaline Phosphatase 107 U/L (38-126); Anion Gap 5 mmol/L (4-12); Aspartate Amino Transferase 34 U/L (14-36); Bilirubin,Total 0.2 mg/dL (0.2-1.3); Blood Urea Nitrogen 16 mg/dL (7-17); Calcium 9.1 mg/dL (8.4-10.2); Carbon Dioxide 30 mmol/L (22-30); Chloride 105 mmol/L (98-107); Estimated Glomerular Filt Rate > 60; Glucose 97 mg/dL (65-110); Potassium 4.0 mmol/L (3.4-5.0); Sodium 140 mmol/L (137-145); Total Protein 7.1 g/dL (6.3-8.2)
[2025-05-09] MEDS: ACETAMINOPHEN 500 MG TABLET 1000 MG PO (15:16)
[2025-05-09 15:47] VITALS: BP 166/72; PULSE 64; RESP 16; O2SAT 96
== END 2025-05-09 15:54 | disposition home or self-care (01) ==
PROVIDERS: Emergency Provider Physician Assistant
DX: R03.0 Elevated blood-pressure reading, without diagnosis of hypertension (principal); E11.39 Type 2 diabetes mellitus with other diabetic ophthalmic complication; H42 Glaucoma in diseases classified elsewhere; F31.9 Bipolar disorder, unspecified
CPT/HCPCS: 36415; 70450; 80053; 85025; 99284; A9270